=== PATIENT | female | born 1990 | race African-American/Black ===

== ENCOUNTER 2019-05-18 11:41 | Emergency (ER) | payer OTHER ==
[2019-05-18 12:59] LABS: Absolute Lymphocytes (CBC) 1.8 K/uL (0.7-4.9); Basophils % 0.7 % (0-1.3); Lymphocytes % 35.3 % (15.3-44.8); MPV 9.2 fL (7.6-11.3); RBC Red Blood Cell Count 4.56 M/uL (3.86-4.86)
[2019-05-18 13:14] LABS: Albumin 3.7 g/dL (3.4-5.0); Bilirubin Direct 0.2 mg/dL (0-0.2); Bilirubin Total 0.9 mg/dL (0.2-1.0); Potassium 3.6 mmol/L (3.5-5.1); Protein, Total 7.5 g/dL (6.4-8.2)
--- NOTE | 2019-05-18 13:28 | EDPHYS ---
Physician Documentation [facility] Name: Ashlee Painter Age: 28 yrs Sex: Female : 1990 Arrival Date: 05/18/2019 Time: 11:47 Bed 19 Private MD: ED Physician Jevon Serna HPI: 05/18 13:18 This 28 yrs old Black Female presents to ER via Ambulatory with complaints of Abdominal kb Pain. 13:18 The patient presents with abdominal pain in the epigastric area. Onset: The kb symptoms/episode began/occurred 2 week(s) ago. The symptoms do not radiate. Associated signs and symptoms: none. The symptoms are described as intermittent. Modifying factors: The symptoms are alleviated by nothing, the symptoms are aggravated by nothing. Severity of pain: At its worst the pain was mild in the emergency department the pain has resolved. The patient has not experienced similar symptoms in the past. The patient has not recently seen a physician. Pt reports intermittent upper abd pain that lasts for approx 15-20 minutes each time it happens. Reports it started a few weeks ago and the last time it happened was last night. Came in today because it was her only day off. No pain at this time. Historical: - Allergies: 12:20 No Known Allergies; aa5 - Home Meds: 12:20 None [Active]; aa5 - PMHx: 12:20 None; aa5 - PSHx: 12:20 None; aa5 - Immunization history:: Flu vaccine is not up to date. - Social history:: Smoking status: Patient/guardian denies using tobacco. - Ebola Screening: : No symptoms or risks identified at this time. ROS: 13:25 Constitutional: Negative for fever, chills, and weight loss, Neck: Negative for injury, kb pain, and swelling, Cardiovascular: Negative for chest pain, palpitations, and edema, Respiratory: Negative for shortness of breath, cough, wheezing, and pleuritic chest pain, Back: Negative for injury and pain, MS/Extremity: Negative for injury and deformity, Skin: Negative for injury, rash, and discoloration, Neuro: Negative for headache, weakness, numbness, tingling, and seizure. 13:25 Abdomen/GI: Positive for abdominal pain, Negative for nausea, vomiting, and diarrhea, constipation, abdominal cramps, abdominal distension, anorexia. Exam: 13:26 Constitutional: This is a well developed, well nourished patient who is awake, alert, kb and in no acute distress. Head/Face: Normocephalic, atraumatic. ENT: Nares patent. No nasal discharge, no septal abnormalities noted. Tympanic membranes are normal and external auditory canals are clear. Oropharynx with no redness, swelling, or masses, exudates, or evidence of obstruction, uvula midline. Mucous membranes moist. Neck: Trachea midline, no thyromegaly or masses palpated, and no cervical lymphadenopathy. Supple, full range of motion without nuchal rigidity, or vertebral point tenderness. No Meningismus. Chest/axilla: Normal chest wall appearance and motion. Nontender with no deformity. No lesions are appreciated. Cardiovascular: Regular rate and rhythm with a normal S1 and S2. No gallops, murmurs, or rubs. Normal PMI, no JVD. No pulse deficits. Respiratory: Lungs have equal breath sounds bilaterally, clear to auscultation and percussion. No rales, rhonchi or wheezes noted. No increased work of breathing, no retractions or nasal flaring. Abdomen/GI: Soft, non-tender, with normal bowel sounds. No distension or tympany. No guarding or rebound. No evidence of tenderness throughout. Back: No spinal tenderness. No costovertebral tenderness. Full range of motion. Skin: Warm, dry with normal turgor. Normal color with no rashes, no lesions, and no evidence of cellulitis. MS/ Extremity: Pulses equal, no cyanosis. Neurovascular intact. Full, normal range of motion. Neuro: Awake and alert, GCS 15, oriented to person, place, time, and situation. Cranial nerves II-XII grossly intact. Motor strength 5/5 in all extremities. Sensory grossly intact. Cerebellar exam normal. Normal gait. Vital Signs: 12:20 BP 127 / 78; Pulse 85; Resp 16 S; Temp 98.1(TE); Pulse Ox 100% on R/A; aa5 MDM: 12:14 Patient medically screened. kb 13:26 Data reviewed: vital signs, nurses notes. Data interpreted: Pulse oximetry: on room air kb is 100 %. Interpretation: normal. Counseling: I had a detailed discussion with the patient and/or guardian regarding: the historical points, exam findings, and any diagnostic results supporting the discharge/admit diagnosis, lab results, the need for outpatient follow up, a family practitioner, to return to the emergency department if symptoms worsen or persist or if there are any questions or concerns that arise at home. 05/18 12:29 Order name: Basic Metabolic Panel; Complete Time: 13:16 kb 05/18 12:29 Order name: CBC with Diff; Complete Time: 13:06 kb 05/18 12:29 Order name: Hepatic Function; Complete Time: 13:16 kb 05/18 12:29 Order name: Lipase; Complete Time: 13:16 kb 05/18 12:29 Order name: IV Saline Lock; Complete Time: 12:52 kb 05/18 12:29 Order name: Labs collected and sent; Complete Time: 12:52 kb Administered Medications: No medications were administered Disposition: 05/19 07:24 Co-signature as Attending Physician, Jevon Serna MD I agree with the assessment and steve plan of care. Disposition: 05/18/19 13:27 Discharged to Home. Impression: Upper abdominal pain, unspecified. - Condition is Stable. - Discharge Instructions: Gastroesophageal Reflux Disease, Adult, Abdominal Pain, Adult, [id number]. - Medication Reconciliation Form, Thank You Letter, Antibiotic Education, Prescription Opioid Use form. - Work release form (05/18/19 13:50). mg2 - Follow up: Emergency Department; When: As needed; Reason: Worsening of condition. Follow up: Private Physician; When: 2 - 3 days; Reason: Recheck today's complaints, Continuance of care, Re-evaluation by your physician. Signatures: Dispatcher [employer] [facility] Yessica Duncan, Meena Jain RN RN sv Anderson, Corey, MD MD cha Calderon, Audri, RN RN aa5 Kory Rodriguez RN mg2 Corrections: (The following items were deleted from the chart) 05/18 13:40 13:27 05/18/2019 13:27 Discharged to Home. Impression: Upper abdominal pain, sv unspecified. Condition is Stable. Forms are Medication Reconciliation Form, Thank You Letter, Antibiotic Education, Prescription Opioid Use. Follow up: Emergency Department; When: As needed; Reason: Worsening of condition. Follow up: Private Physician; When: 2 - 3 days; Reason: Recheck today's complaints, Continuance of care, Re-evaluation by your physician. kb
--- NOTE | 2019-05-18 13:28 | ER ---
Nurse's Notes [facility] Name: Ashlee Painter Age: 28 yrs Sex: Female : 1990 Arrival Date: 05/18/2019 Time: 11:47 Bed 19 Private MD: Diagnosis: Upper abdominal pain, unspecified Presentation: 05/18 12:20 Presenting complaint: Patient states: intermittent epigastric pain that began 2-3 weeks aa5 ago. Denies nausea/vomiting. Transition of care: patient was not received from another setting of care. Onset of symptoms was April 2019. Risk Assessment: Do you want to hurt yourself or someone else? Patient reports no desire to harm self or others. Initial Sepsis Screen: Does the patient meet any 2 criteria? No. Patient's initial sepsis screen is negative. Does the patient have a suspected source of infection? No. Patient's initial sepsis screen is negative. Care prior to arrival: None. 12:20 Acuity: SREEDHAR 3 aa5 12:20 Method Of Arrival: Ambulatory aa5 Historical: - Allergies: 12:20 No Known Allergies; aa5 - Home Meds: 12:20 None [Active]; aa5 - PMHx: 12:20 None; aa5 - PSHx: 12:20 None; aa5 - Immunization history:: Flu vaccine is not up to date. - Social history:: Smoking status: Patient/guardian denies using tobacco. - Ebola Screening: : No symptoms or risks identified at this time. Screenin:35 Abuse screen: Denies threats or abuse. Denies injuries from another. Nutritional sv screening: No deficits noted. Tuberculosis screening: No symptoms or risk factors identified. Fall Risk None identified. Assessment: 12:35 General: Appears in no apparent distress. comfortable, well groomed, well developed, sv Behavior is calm, cooperative, appropriate for age. Pain: Complains of pain in epigastric area. Neuro: Level of Consciousness is awake, alert, obeys commands, Oriented to person, place, time, situation, Moves all extremities. Full function Gait is steady. Respiratory: Respiratory effort is even, unlabored, Respiratory pattern is regular, symmetrical. GI: Abdomen is flat, Reports indigestion, nausea. Derm: Skin is pink, warm \T\ dry. 13:38 Reassessment: Patient appears in no apparent distress at this time. No changes from sv previously documented assessment. Patient and/or family updated on plan of care and expected duration. Pain level reassessed. Patient is alert, oriented x 3, equal unlabored respirations, skin warm/dry/pink. Vital Signs: 12:20 BP 127 / 78; Pulse 85; Resp 16 S; Temp 98.1(TE); Pulse Ox 100% on R/A; aa5 ED Course: 11:47 Patient arrived in ED. mr 12:14 [facility] kb 12:14 Jevon Serna MD is Attending Physician. kb 12:19 Arm band placed on. aa5 12:20 Triage completed. aa5 12:34 Meena Parsons, RN is Primary Nurse. sv 12:35 Patient has correct armband on for positive identification. Bed in low position. Call sv light in reach. Door closed. Head of bed elevated. 12:40 Inserted saline lock: 22 gauge in right antecubital area, using aseptic technique. sv ,using aseptic technique. diffusics Blood collected. Flushed right antecubital with 2 ml normal saline. 13:38 No provider procedures requiring assistance completed. IV discontinued, intact, sv bleeding controlled, No redness/swelling at site. Pressure dressing applied. Administered Medications: No medications were administered Outcome: 13:27 Discharge ordered by . kb 13:38 Discharged to home ambulatory. sv 13:38 Condition: stable 13:38 Discharge instructions given to patient, Instructed on discharge instructions, follow up and referral plans. Demonstrated understanding of instructions, follow-up care. 13:40 Patient left the ED. sv Signatures: Yessica Duncan FNP-C FNP-Meena Chang, RN RN julio PierreAlva mason, Gale, RN RN aa5
[2019-05-18 13:45] VITALS: BP 127/78; TEMP 98.1; O2SAT 100
== END 2019-05-18 13:40 | disposition home or self-care (01) ==
LOC: ER 11:41
DX: R10.10 Upper abdominal pain, unspecified (principal)
CPT/HCPCS: 36415; 80048; 80076; 83690; 85025; 99283

== ENCOUNTER 2020-01-28 22:54 | Emergency (ER) | payer BC, OTHER ==
[2020-01-29 03:01] LABS: Absolute Lymphocytes (CBC) 2.7 K/uL (0.7-4.9); Basophils % 0.9 % (0-1.3); Hematocrit 32.4 % (36.0-45.0); Lymphocytes % 42.8 % (15.3-44.8); MPV 8.9 fL (7.6-11.3); Protime INR 0.96; RBC Red Blood Cell Count 4.46 M/uL (3.86-4.86)
[2020-01-29 03:23] LABS: ALT/SGPT 16 U/L (12-78); AST/SGOT 12 U/L (15-37); Albumin 3.7 g/dL (3.4-5.0); Alkaline Phosphatase 51 U/L (45-117); BUN Blood Urea Nitrogen 12 mg/dL (7-18); Bicarbonate 23 mmol/L (21-32); Bilirubin Direct < 0.1 mg/dL (0-0.2); Bilirubin Total 0.5 mg/dL (0.2-1.0); Glucose Level 90 mg/dL (74-106); Magnesium 1.9 mg/dL (1.8-2.4); NT PRO-BNP 7 pg/mL (<125); Potassium 3.8 mmol/L (3.5-5.1); Protein, Total 7.5 g/dL (6.4-8.2); Sodium Level 141 mmol/L (136-145); Troponin (Emerg Dept Use Only) < 0.02 ng/mL (0.0-0.045)
--- NOTE | 2020-01-29 05:27 | EDPHYS ---
Physician Documentation [facility] Name: Ashlee Painter Age: 29 yrs Sex: Female : 1990 Arrival Date: 01/28/2020 Time: 22:55 Bed 8 Private MD: ED Physician Ashish Simms HPI: 01/28 02:51 This 29 yrs old Black Female presents to ER via Ambulatory with complaints of Chest tw4 Pain. 02:51 The patient or guardian reports chest pain that is located primarily in the anterior tw4 chest wall. Associated signs and symptoms: The patient has no apparent associated signs or symptoms. The chest pain is described as dull. Duration: The patient or guardian reports a single episode. Modifying factors: radiates to the left arm, The symptoms are alleviated by nothing. Severity of pain: At its worst the pain was mild in the emergency department the pain is unchanged. The patient has not experienced similar symptoms in the past. 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 - Social history:: Smoking status: Patient denies any tobacco usage or history of. ROS: 02:51 Constitutional: Negative for fever, chills, and weight loss, Eyes: Negative for injury, tw4 pain, redness, and discharge, Respiratory: Negative for shortness of breath, cough, wheezing, and pleuritic chest pain, Abdomen/GI: Negative for abdominal pain, nausea, vomiting, diarrhea, and constipation, Back: Negative for injury and pain, MS/Extremity: Negative for injury and deformity, Skin: Negative for injury, rash, and discoloration, Neuro: Negative for headache, weakness, numbness, tingling, and seizure. 02:51 Cardiovascular: Positive for chest pain, Negative for edema, orthopnea, paroxysmal nocturnal dyspnea. Exam: 02:51 Constitutional: This is a well developed, well nourished patient who is awake, alert, tw4 and in no acute distress. Head/Face: Normocephalic, atraumatic. Chest/axilla: Normal chest wall appearance and motion. Nontender with no deformity. No lesions are appreciated. Cardiovascular: Regular rate and rhythm with a normal S1 and S2. No gallops, murmurs, or rubs. Normal PMI, no JVD. No pulse deficits. Respiratory: Lungs have equal breath sounds bilaterally, clear to auscultation and percussion. No rales, rhonchi or wheezes noted. No increased work of breathing, no retractions or nasal flaring. Abdomen/GI: Soft, non-tender, with normal bowel sounds. No distension or tympany. No guarding or rebound. No evidence of tenderness throughout. Back: No spinal tenderness. No costovertebral tenderness. Full range of motion. MS/ Extremity: Pulses equal, no cyanosis. Neurovascular intact. Full, normal range of motion. Neuro: Awake and alert, GCS 15, oriented to person, place, time, and situation. Cranial nerves II-XII grossly intact. Motor strength 5/5 in all extremities. Sensory grossly intact. Cerebellar exam normal. Normal gait. Vital Signs: 02:41 BP 106 / 73; Pulse 80; Resp 18; Temp 98; Pulse Ox 100% on R/A; Weight 83.91 kg; Height mg2 5 ft. 4 in. (162.56 cm); Pain 2/10; 04:13 Pulse 75; Resp 18; Pulse Ox 100% on R/A; mg2 02:41 Body Mass Index 31.75 (83.91 kg, 162.56 cm) mg2 MDM: 01:55 Patient medically screened. tw4 02:51 Differential diagnosis: acute pericarditis, anxiety, coronary artery disease tw4 gastroesophageal reflux disease (GERD), pancreatitis, peptic ulcer disease, pericarditis, pleurisy, pneumonia, pneumothorax, pulmonary embolus. Data reviewed: vital signs, nurses notes. Data interpreted: Pulse oximetry: Interpretation: normal. Counseling: I had a detailed discussion with the patient and/or guardian regarding: the historical points, exam findings, and any diagnostic results supporting the discharge/admit diagnosis, lab results, radiology results. 05:35 Special discussion: Based on the patient's history, exam, and Dx evaluation, there is tw4 no indication for emergent intervention or inpatient Tx. It is understood by the patient/guardian that if the Sx's persist or worsen they need to return immediately for re-evaluation. I discussed with the patient/guardian in detail that at this point there is no indication for admission to the hospital. It is understood, however, that if the symptoms persist or worsen the patient needs to return immediately for re-evaluation. 01/28 00:32 Order name: Basic Metabolic Panel 01/28 00:32 Order name: CBC with Diff 01/28 00:32 Order name: LFT's 01/28 00:32 Order name: Magnesium; Complete Time: 05:28 01/28 05:29 Interpretation: Within normal limits: MG 1.9. 01/28 00:32 Order name: NT PRO-BNP; Complete Time: 05:28 01/28 05:29 Interpretation: Within normal limits: NT PRO-BNP 7. 01/28 00:32 Order name: PT-INR; Complete Time: 05:28 01/28 05:30 Interpretation: Within normal limits: PT 11.3. 01/28 00:32 Order name: Troponin (emerg Dept Use Only); Complete Time: 05:28 01/28 05:30 Interpretation: Within normal limits: TROPED < 0.02. 01/28 00:32 Order name: XRAY Chest (1 view) 01/28 00:33 Order name: Basic Metabolic Panel; Complete Time: 05:28 EDMS 01/28 05:28 Interpretation: Normal except: CL 110; GFR 86. 01/28 00:33 Order name: CBC with Automated Diff; Complete Time: 05:28 EDMS 01/28 05:28 Interpretation: Normal except: HGB 10.6; HCT 32.4; MCV 72.7; MCH 23.8; RDW 17.8. 01/28 00:33 Order name: Liver (Hepatic) Function; Complete Time: 05:28 EDMS 01/28 05:28 Interpretation: Normal except: AST 12; GLOB 3.8; A/G 1.0. 01/28 00:32 Order name: EKG; Complete Time: 00:34 01/28 00:32 Order name: Cardiac monitoring; Complete Time: 02:39 01/28 00:32 Order name: EKG - Nurse/Tech; Complete Time: 02:39 01/28 00:32 Order name: IV Saline Lock; Complete Time: 02:39 01/28 00:32 Order name: Labs collected and sent; Complete Time: 02:39 01/28 00:32 Order name: O2 Per Protocol; Complete Time: 02:39 01/28 00:32 Order name: O2 Sat Monitoring; Complete Time: 02:39 EC:33 Rate is 78 beats/min. Rhythm is regular. QRS Cutler is Normal. GA interval is normal. QRS tw4 interval is normal. QT interval is normal. No Q waves. T waves are Normal. No ST changes noted. Clinical impression: Normal ECG. Interpreted by me. Reviewed by me. Administered Medications: 05:36 Drug: TORadol 30 mg Route: IVP; Site: right antecubital; vicente 05:52 Follow up: Response: No adverse reaction; Medication administered at discharge. mg2 Disposition: 01/29/20 05:26 Discharged to Home. Impression: Other chest pain. - Condition is Stable. - Discharge Instructions: Nonspecific Chest Pain, Pain Without a Known Cause. - Medication Reconciliation Form, Thank You Letter, Antibiotic Education, Prescription Opioid Use form. - Follow up: Private Physician; When: Upon discharge from the Emergency Department; Reason: Recheck today's complaints, Continuance of care, Re-evaluation by your physician. - Problem is new. - Symptoms have improved. Signatures: Dispatcher [employer] EDGrayson Acharya, RN TIFFANY Sania Santana, RN Ashish Campos ea, MD MD [facility] Kory Rodriguez RN RN mg2 Corrections: (The following items were deleted from the chart) 02:40 01:57 Document PUI# ordered. tw mg2 02:40 01:57 Droplet/Contact Precautions ordered. tw4 mg2 02:40 01:57 Notify Health Dept [phone]/ ordered. tw mg2 04:45 01:58 CORONAVIRUS+MR.LAB.BRZ ordered. EDMA EDMS 04:45 01:58 Influenza Screen (A \T\ B)+BA.LAB.BRZ ordered. EDMA EDMS 04:45 01:58 Group A Streptococcus Rapid Sc+BA.LAB.BRZ ordered. EDMA EDMS 05:53 05:26 01/29/2020 05:26 Discharged to Home. Impression: Other chest pain. Condition is mg2 Stable. Forms are Medication Reconciliation Form, Thank You Letter, Antibiotic Education, Prescription Opioid Use. Follow up: Private Physician; When: Upon discharge from the Emergency Department; Reason: Recheck today's complaints, Continuance of care, Re-evaluation by your physician. Problem is new. Symptoms have improved. tw4
--- NOTE | 2020-01-29 05:27 | ER ---
Nurse's Notes [facility] Name: Ashlee Painter Age: 29 yrs Sex: Female : 1990 Arrival Date: 01/28/2020 Time: 22:55 Bed 8 Private MD: Diagnosis: Other chest pain Presentation: 01/27 23:20 Chief complaint: Patient states: Chest pain, began about 2-3 days ago but is much worse sg this evening, states feeling short of breath as well. Coronavirus screen: Patient reports shortness of breath or difficulty breathing. Ebola Screen: Patient negative for fever greater than or equal to 101.5 degrees Fahrenheit, and additional compatible Ebola Virus Disease symptoms Patient denies exposure to infectious person. Patient denies travel to an Ebola-affected area in the 21 days before illness onset. No symptoms or risks identified at this time. Initial Sepsis Screen: Does the patient meet any 2 criteria? No. Patient's initial sepsis screen is negative. Does the patient have a suspected source of infection? No. Patient's initial sepsis screen is negative. Risk Assessment: Do you want to hurt yourself or someone else? Patient reports no desire to harm self or others. Onset of symptoms was January 29, 2020. Care prior to arrival: None. 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 - Social history:: Smoking status: Patient denies any tobacco usage or history of. Screenin:42 Abuse screen: Denies threats or abuse. Denies injuries from another. Nutritional mg2 screening: No deficits noted. Tuberculosis screening: No symptoms or risk factors identified. Fall Risk IV access (20 points). Assessment: 02:40 General: Appears in no apparent distress. comfortable, Behavior is calm, cooperative. mg2 Pain: Complains of pain in chest Pain does not radiate. Pain currently is 2 out of 10 on a pain scale. Quality of pain is described as aching, Pain began gradually, a month now. Neuro: Level of Consciousness is awake, alert, obeys commands, Oriented to person, place, time, situation. Cardiovascular: Reports chest pain, Capillary refill < 3 seconds Patient's skin is warm and dry. Respiratory: Airway is patent Respiratory effort is even, unlabored, Respiratory pattern is regular, symmetrical. GI: No signs and/or symptoms were reported involving the gastrointestinal system. : No signs and/or symptoms were reported regarding the genitourinary system. EENT: No signs and/or symptoms were reported regarding the EENT system. Derm: Skin is intact, is healthy with good turgor, Skin is pink, warm \T\ dry. normal. Musculoskeletal: Circulation, motion, and sensation intact. Capillary refill < 3 seconds. 02:40 Reassessment: provider ordered to cancel the covid tests. mg2 03:09 Reassessment: Patient and/or family updated on plan of care and expected duration. Pain ea level reassessed. Patient is alert, oriented x 3, equal unlabored respirations, skin warm/dry/pink. 04:13 Reassessment: Patient appears in no apparent distress at this time. Patient and/or mg2 family updated on plan of care and expected duration. Pain level reassessed. Patient is alert, oriented x 3, equal unlabored respirations, skin warm/dry/pink. Vital Signs: 02:41 BP 106 / 73; Pulse 80; Resp 18; Temp 98; Pulse Ox 100% on R/A; Weight 83.91 kg; Height mg2 5 ft. 4 in. (162.56 cm); Pain 2/10; 04:13 Pulse 75; Resp 18; Pulse Ox 100% on R/A; mg2 02:41 Body Mass Index 31.75 (83.91 kg, 162.56 cm) mg2 ED Course: 01/27 22:55 Patient arrived in ED. fj1 01/28 01:55 Kory Rodriguez, TIFFANY is Primary Nurse. mg2 01:55 Ashish Simms MD is Attending Physician. tw4 02:02 Arm band placed on. sg 02:03 Triage completed. sg 02:30 Inserted saline lock: 20 gauge in right antecubital area, using aseptic technique. mg2 Blood collected. 02:42 Patient has correct armband on for positive identification. 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 Pulse mg2 ox on. NIBP on. Door closed. Warm blanket given. 02:42 No provider procedures requiring assistance completed. Patient maintains SpO2 mg2 saturation greater than 95% on room air. 03:02 XRAY Chest (1 view) In Process Unspecified. EDMS 05:52 IV discontinued, intact, bleeding controlled, No redness/swelling at site. Pressure mg2 dressing applied. Administered Medications: 05:36 Drug: TORadol 30 mg Route: IVP; Site: right antecubital; vicente 05:52 Follow up: Response: No adverse reaction; Medication administered at discharge. mg2 Outcome: 05:26 Discharge ordered by MD. pride 05:52 Discharged to home ambulatory. mg2 05:52 Condition: stable 05:52 Discharge instructions given to patient, Instructed on discharge instructions, follow up and referral plans. Demonstrated understanding of instructions, follow-up care. 05:53 Patient left the ED. mg2 Signatures: Dispatcher [employer] EDMS Grayson Law, RN TIFFANY Sania Santana RN Ashish Campos ea, MD MD tw4 Kory Rodriguez RN RN mg2 James, Frank fj
[2020-01-29] MEDS ORDERED: KETOROLAC 30 MG/ML INJ ONE (05:43)
[2020-01-29 06:00] VITALS: BP 106/73; TEMP 98; O2SAT 100
--- NOTE | 2020-01-29 11:44 | RAD REPORT ---
EXAM DESCRIPTION: Domenico Single View01/29/2020 3:02 am CLINICAL HISTORY: Chest pain COMPARISON: none FINDINGS: The lungs appear clear of acute infiltrate. The heart is normal size IMPRESSION: No acute abnormalities displayed
== END 2020-01-29 05:53 | disposition home or self-care (01) ==
LOC: ER 22:54
DX: R07.89 Other chest pain (principal)
CPT/HCPCS: 36415; 71045; 80048; 80076; 83735; 83880; 84484; 85025; 85610; 93005; 96374; 99285